=== PATIENT | female | born 1980 | race Hispanic/Latino ===

== ENCOUNTER 2018-04-04 08:04 | Day surgery (SDC) | payer BC, OTHER ==
[~2018-04-04 08:04] MED LIST: KETOROLAC 60 MG/2 ML VIAL (J1885) As Ordered; LIDOCAINE 2% INJ 100 MG/5 ML SDV (FOR ANES.) As Ordered; ONDANSETRON 4MG/2ML VIAL (J2405) As Ordered; PROPOFOL 200 MG/20 ML VIAL As Ordered; ROCURONIUM BROMIDE 50 MG/5 ML VIAL As Ordered; dexameTHASONE 4 MG/ML 1ML VIAL (J1100) As Ordered
[2018-04-04] MEDS ORDERED: LIDOCAINE 1% MDV 20ML VIAL SQ (08:15)
[2018-04-04] MEDS ORDERED: LR 1,000 ML IV ×3 (08:15→11:45)
[2018-04-04 08:59] LABS: CONTROL LINE UCG INT CTR LINE PRESENT; URINE PREG TEST NEGATIVE (NEGATIVE)
[2018-04-04] MEDS ORDERED: fentaNYL 250 MCG/5 ML INJECTION (J3010) As Ordered (09:06)
[2018-04-04] MEDS ORDERED: MIDAZOLAM INJ 2 MG/2 ML VIAL (J2250) As Ordered (09:06)
[2018-04-04] MEDS ORDERED: SUGAMMADEX SODIUM 500 MG/5 ML VIAL (BRIDION) As Ordered (09:31)
[2018-04-04] MEDS ORDERED: ONDANSETRON 4MG/2ML VIAL (J2405) IV (11:30)
[2018-04-04] MEDS ORDERED: fentaNYL 100 MCG/2 ML INJECTION (J3010) IV (11:30)
[2018-04-04] MEDS ORDERED: MEPERIDINE INJ 25 MG/ML VIAL (J2175) IV (11:30)
[2018-04-04] MEDS ORDERED: PERCOCET 5MG/325MG TAB PO (11:30)
[2018-04-04] MEDS ORDERED: METOCLOPRAMIDE INJ 10MG/2ML VIAL (J2765) IV (11:30)
[2018-04-04] MEDS ORDERED: NORCO, ANEXSIA 5/325MG TABLET (HYDROcodone/ACETAMINOPHEN) PO (11:45)
[2018-04-04] MEDS ORDERED: IBUPROFEN 600 MG TAB PO (11:45)
== END 2018-04-04 13:00 | disposition home or self-care (01) ==
LOC: M SDC 08:04
DX: Z30.2 Encounter for sterilization (principal); J45.909 Unspecified asthma, uncomplicated; K21.9 Gastro-esophageal reflux disease without esophagitis; B00.1 Herpesviral vesicular dermatitis; A60.00 Herpesviral infection of urogenital system, unspecified; J30.9 Allergic rhinitis, unspecified; Z91.09 Other allergy status, other than to drugs and biological substances; Z91.013 Allergy to seafood; Z79.899 Other long term (current) drug therapy
CPT/HCPCS: 58670

== ENCOUNTER → 2018-06-22 | Outpatient (REF) | payer BC, OTHER | LOC: M SFHCLERA 16:31 | DX: R30.0 Dysuria (principal) | CPT/HCPCS: 87086 ==

== ENCOUNTER → 2018-10-05 | Outpatient (CLI) | payer BC, OTHER ==
[2018-10-05 19:18] LABS: BASO # 0.1 10^3/uL (0.0-0.2); BASO % 0.6 % (0.0-1.0); EOS # 0.1 10^3/uL (0.0-0.50); EOS % 1.4 % (0.0-3.0); HEMATOCRIT 43.6 % (36.0-47.0); IMMATURE GRANULOCYTE % 0.3 % (0-3.0); LYMPH # 2.2 10^3/uL (1.5-4.5); MEAN CORPUSCULAR HGB CONC 32.1 g/dl (32.0-36.5); MEAN CORPUSCULAR VOLUME 93.6 fl (80.0-96.0); MONO # 0.7 10^3/uL (0.0-0.8); MONO % 7.9 % (0.0-5.0); NEUTROPHILS # 5.5 10^3/uL (1.8-7.7); NEUTROPHILS % 63.8 % (36.0-66.0); PLATELET COUNT, AUTOMATED 199 10^3/uL (150-450); RED BLOOD COUNT 4.66 10^6/uL (4.00-5.40); RED CELL DISTRIBUTION WIDTH 12.3 % (11.5-14.5); WHITE BLOOD COUNT 8.6 10^3/uL (4.0-10.0)
[2018-10-05 19:36] LABS: FREE T4 0.89 NG/DL (0.76-1.46)
[2018-10-05 20:02] LABS: POS COUNT POS FLAG
== END ==
LOC: M LRY 09:54
DX: R53.83 Other fatigue (principal)
CPT/HCPCS: 84443

== ENCOUNTER → 2018-12-28 | Outpatient (REF) | payer BC, OTHER ==
[~2018-12-28] MED LIST changes: -KETOROLAC 60 MG/2 ML VIAL (J1885) As Ordered; -LIDOCAINE 2% INJ 100 MG/5 ML SDV (FOR ANES.) As Ordered; +NORE0.353 PO; -ONDANSETRON 4MG/2ML VIAL (J2405) As Ordered; -PROPOFOL 200 MG/20 ML VIAL As Ordered; -ROCURONIUM BROMIDE 50 MG/5 ML VIAL As Ordered; +VALA1TAB2 PO; -dexameTHASONE 4 MG/ML 1ML VIAL (J1100) As Ordered
[2018-12-28 21:47] LABS: CHLAMYDIA DNA AMPLIFICATION NEGATIVE (NEGATIVE); GC DNA AMPLIFICATION NEGATIVE (NEGATIVE)
== END ==
LOC: M SFHCLERA 17:28
PROVIDERS: ATTEND Nurse Practitioner Family
DX: J02.9 Acute pharyngitis, unspecified (principal); R30.0 Dysuria

== ENCOUNTER → 2019-02-17 | Outpatient (REF) | payer BC, OTHER ==
[2019-02-17 19:42] LABS: APPEARANCE, URINE CLEAR (CLEAR); BACTERIA, URINE AUTO NEGATIVE (NEGATIVE); BILIRUBIN, URINE AUTO NEGATIVE (NEGATIVE); BLOOD, URINE BLOOD NEGATIVE (NEGATIVE); COLOR, URINE YELLOW (YELLOW); GLUCOSE, URINE (UA) AUTO NEGATIVE (NEGATIVE); KETONE, URINE AUTO NEGATIVE (NEGATIVE); LEUKOCYTE ESTERASE, URINE AUTO TRACE (NEGATIVE); MUCUS, URINE SMALL (NEGATIVE); NITRITE, URINE AUTO NEGATIVE (NEGATIVE); PROTEIN, URINE AUTO NEGATIVE (NEGATIVE); RBC, URINE AUTO 2 /HPF (0-3); SPECIFIC GRAVITY URINE AUTO 1.019 (1.002-1.035); SQUAMOUS EPITHELIAL CELL UR AU 2 /HPF (0-6); UROBILINOGEN, URINE AUTO 0.2 mg/dL (0.0-2.0); WBC, URINE AUTO 5 /HPF (0-3)
== END ==
LOC: M LAB REF 16:49
PROVIDERS: ATTEND Nurse Practitioner Women's Health
DX: N39.0 Urinary tract infection, site not specified (principal)